=== PATIENT | female | born 1995 | race Caucasian/White ===

== ENCOUNTER 2020-06-08 20:25 | Emergency (ER) | payer MEDICAID ==
[~2020-06-08] VITALS: Ht 167.6 cm; Wt 61.6 kg
[2020-06-08 20:28] VITALS: BP 119/83
--- NOTE | 2020-06-08 21:32 | NUR ---
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 Urine sent to lab.
[2020-06-08] MEDS ORDERED: LIDOCAINE-MPF 1%, 5ML ONE (22:05)
[2020-06-08] MEDS ORDERED: CEFTRIAXONE 1,000 MG ONE (22:05)
--- NOTE | 2020-06-08 22:12 | NUR ---
given 500mg rocephin RVG IM mixed with lido for dilution.
[2020-06-08] MEDS ORDERED: CEFTRIAXONE 1,000 MG IM ONE ×2 (22:30)
[2020-06-08] MEDS ORDERED: CEFTRIAXONE 250 MG IM ONE (22:30)
== END 2020-06-08 22:25 | disposition home or self-care (01) ==
LOC: ED 22:10
DX: N89.8 Other specified noninflammatory disorders of vagina (principal); A56.02 Chlamydial vulvovaginitis; A54.02 Gonococcal vulvovaginitis, unspecified; F17.200 Nicotine dependence, unspecified, uncomplicated
CPT/HCPCS: 87491; 87591; 96372; 99283; J0696